=== PATIENT | male | born 1970 | race Two or more races ===

== ENCOUNTER 2021-01-30 03:01 | Emergency (ER) | payer SELFPAY ==
[~2021-01-30] VITALS: Ht 162.6 cm; Wt 72.0 kg
[2021-01-30] MEDS ORDERED: KETOROLAC 60MG/2ML VIAL IM ONE (03:45)
[2021-01-30] MEDS ORDERED: IBUP-2029 MT (04:05)
[2021-01-30 05:02] VITALS: BP 141/76
== END 2021-01-30 05:16 | disposition home or self-care (01) ==
LOC: ER 03:01
DX: M77.11 Lateral epicondylitis, right elbow (principal); F10.229 Alcohol dependence with intoxication, unspecified; Y90.0 Blood alcohol level of less than 20 mg/100 ml
CPT/HCPCS: 96372; 99283; J1885